=== PATIENT | female | born 1995 | race Hispanic/Latino ===

== ENCOUNTER 2022-03-24 12:31 | Outpatient (CLI) | payer BC ==
[~2022-03-24 12:31] MED LIST: Iopamidol 300 61% 50 ML VIAL FS ONE
== END 2022-03-24 12:32 | disposition home or self-care (01) ==
LOC: CSHRAD 12:31
PROVIDERS: ATTEND Obstetrics & Gynecology
DX: Z31.41 Encounter for fertility testing (principal)
CPT/HCPCS: 58340; 74740; Q9967